=== PATIENT | female | born 1940 | race Caucasian/White ===

== ENCOUNTER 2021-08-11 01:34 | Day surgery (SDC) | payer MEDICARE, SELFPAY ==
[2021-07-23 14:56] VITALS: BMI 31.0
[2021-08-11 08:21] VITALS: BP 149/84; PULSE 96; RESP 18; TEMP 36.6; O2SAT 98; BMI 30.1
[2021-08-11] MEDS: LACTATED RINGERS 1,000 ML 150 ML IV CONT (08:31)
--- NOTE | 2021-08-11 08:53 | WPDGICN ---
Assessment and Plan Assessment and plan (1) Encounter for screening colonoscopy: Code(s): Z12.11 - Encounter for screening for malignant neoplasm of colon Status: Acute Assessment and Plan: Patient presents for neoplasia screening colonoscopy. Appears to be at average risk for colon polyps. GI Consult Note Consult date/time: 08/11/21 08:53 HPI: Madyson Mayo is a 81 year old female Referred for screening colonoscopy. Patient reports that her current weight appetite bowel movements are normal. She denies abdominal pain. She has had no bleeding. Family history noncontributory. She is referred by primary care service for screening colonoscopy per patient request. Review of Systems Review of Systems: All systems reviewed & are unremarkable except as noted in HPI and below PMFSH Family History Family History (Updated 03/22/17 @ 09:12 by DOCTOR UNKNOWN) Sibling Patient's brother is in good health, Onset Age: 63 Patient's brother is Mother Patient's mother is Hypertension Family history of coronary artery disease Family history of malignant neoplasm of breast in first degree relative Cerebrovascular accident Father Patient's father is Hypertension Family history of coronary artery disease Family history of congestive heart failure Other Family history of alcoholism Family history of arthritis Social History Social History Smoking status: Never smoker Second hand tobacco smoke exposure: No Alcohol intake: current Substance use type: does not use Living arrangements: with family Meds Home Medications and Allergies Home Medications Medication Instructions Recorded Confirmed Type allopurinol 300 mg PO DAILY 07/23/21 07/23/21 History Allergies Allergy/AdvReac Type Severity Reaction Status Date / Time No Known Allergies Allergy Unknown Verified 08/11/21 08:17 Vital Signs Vital Signs - 24 hr 08/11/21 08:21 Temperature 97.9 F Pulse Rate 96 Respiratory Rate 18 Blood Pressure 149/84 H Pulse Oximetry 98 Exam Narrative: Physical exam reveals patient to be alert. Vital signs stable. HEENT exam is unremarkable. Patient is anicteric. Lungs are clear to auscultation and percussion. Heart is without murmur or extra sounds. Abdominal exam bowel sounds are present soft nontender with no organomegaly. Digital external rectal exam is normal.
--- NOTE | 2021-08-11 09:12 | WPDANESEPPF ---
Anes - Initial Pre Proc Eval Procedure: Operation Date: 08/11/21 09:30 Proposed Procedures p Screening Colonoscopy - Rob Chamorro MD Date/Time: 08/11/21 09:12 Surgeon: Rob Chamorro MD Pre Op Diagnosis: neoplasm screening Patient Data Age: 81 Gender: F Height: 1.55 m Weight: 72.4 kg Last Vital Signs Temp 97.9 F 08/11/21 08:21 Pulse 96 08/11/21 08:21 Resp 18 08/11/21 08:21 BP 149/84 H 08/11/21 08:21 Pulse Ox 98 08/11/21 08:21 Allergies Allergy/AdvReac Type Severity Reaction Status Date / Time No Known Allergies Allergy Unknown Verified 08/11/21 08:17 Home Medications Medication Instructions Recorded Confirmed Type allopurinol 300 mg PO DAILY 07/23/21 07/23/21 History Patient hx anesthesia problems: none Family hx anesthesia problems: none Results Review: All pre-operative results and documents have been reviewed as part of the pre-operative evaluation. [facility], [facility] Family History Family History (Updated 03/22/17 @ 09:12 by DOCTOR UNKNOWN) Sibling Patient's brother is in good health, Onset Age: 63 Patient's brother is Mother Patient's mother is Hypertension Family history of coronary artery disease Family history of malignant neoplasm of breast in first degree relative Cerebrovascular accident Father Patient's father is Hypertension Family history of coronary artery disease Family history of congestive heart failure Other Family history of alcoholism Family history of arthritis Social History Social History Smoking status: Never smoker Second hand tobacco smoke exposure: No Alcohol intake: current Substance use type: does not use Living arrangements: with family Anes - Eval Final PreProcedure Day of Procedure 08/11/21 09:12 Patient weight: obese Heart: regular rate and rhythm Lungs: clear to auscultation Airway: Mallampati scale class II Neurological: alert and oriented Last oral intake: >/= 8 hours ASA classification: II Emergent: no Anesthetic plan: proceed Anesthesia type and monitoring: general GIVS and standard monitoring Results Review: All pre-operative results and documents have been reviewed as part of the pre-operative evaluation. Informed Consent: The patient's anesthetic plan and its attendant risks and benefits were discussed with the patient/family/POA. Questions were solicited and answers provided to the satisfaction of the patient/family/POA.
[2021-08-11 09:44] VITALS: BP 118/69; PULSE 77; RESP 17; O2SAT 96
[2021-08-11 09:54] VITALS: BP 121/71; PULSE 74; RESP 15; O2SAT 97
[2021-08-11 10:04] VITALS: BP 145/94; PULSE 83; RESP 23; O2SAT 100
== END 2021-08-11 10:04 | disposition home or self-care (01) ==
PROVIDERS: PCP Family Medicine; Visit Provider Internal Medicine Gastroenterology
PROC: 0DJD8ZZ Inspection of Lower Intestinal Tract, Via Natural or Artificial Opening Endoscopic (ICD-10-PCS; CPT 45378; principal; 2021-08-11 09:30)
DX: Z12.11 Encounter for screening for malignant neoplasm of colon (principal); K57.30 Diverticulosis of large intestine without perforation or abscess without bleeding; D12.3 Benign neoplasm of transverse colon; K64.8 Other hemorrhoids; K63.5 Polyp of colon; E66.9 Obesity, unspecified; Z68.30 Body mass index [BMI] 30.0-30.9, adult
CPT/HCPCS: 45380; 45385; 88305; J2704; J7120

== ENCOUNTER 2022-02-17 00:43 | Day surgery (SDC) | payer MEDICARE, SELFPAY ==
--- NOTE | 2022-01-05 14:42 | PC.NURSE ---
Report to the Outpatient Waiting Room, entrance under the green pavilion located off [facility], at time __1000 on date _01/12/22 . OR Time: __1200 . - You and your visitor will be asked a series of questions to screen for COVID 19 for your protection. - Only one visitor is allowed at this time. - The patient visitor is requested to leave or wait in car when not with patient. - A mask is required within the hospital. Patients may have clear liquids (water, carbonated beverages, clear teas, apple juice) until 3 hours prior to surgery with a maximum of 20 ounces. - No food from midnight until time of surgery - Infants may have breast milk until 4 hours before surgery, infant formula 6 hours prior to surgery. - Children will be allowed to drink immediately following surgery. If applicable, please bring a bottle or sippy cup to assist with drinking. Juice, water, soda, and popsicles are readily available. For infants on formula, please bring formula the day of surgery. Pacifiers are allowed. Take the following medications with a SIP of water the morning of surgery: ___NONE Medications to discontinue per physician __ALL VITAMINS AND SUPPLEMENTS_3 DAYS PRE OP__IBUPROFEN PER DR MENON Date to take last dose____01/08/22 Please no make-up, nail [facility], hairspray, perfume, deodorant, or body powder the day of surgery. No jewelry (including any body piercings) or valuables the day of surgery, leave them at home. Please take a shower or bath the night before, or the morning of, surgery with an antibacterial soap. Wear comfortable, loose fitting clothing. Children are encouraged to wear pajamas. - Jewelry must be removed prior to entering the operating room. Rings and piercings that are not removed may be cut off. - The hospital will not accept responsibility for valuables. - Please leave all valuables, including medications, at home the day of surgery. If you are going home after surgery, a licensed regional company truck driver must drive you home. - NO public transportation without another adult. - We recommend that an adult stay with you for 24 hours following discharge. - We also recommend that you do not drive, make important decision, drink alcoholic beverages, or take any drugs that were not prescribed by your health care provider for at least 24 hours after your discharge time. For Pediatric surgeries, we recommend two adults accompany the child home (only one inside the building at this time). Follow any additional instructions given to you from your surgeon. If you or anyone in your household have experienced Covid symptoms in the past week, please notify your surgeon or the nurse liaison at the phone number below for possible testing. Telephone instructions given to _PATIENT and asked if any additional questions and then verbalized understanding. Patient advised to call surgeon office or pre surgery nurse liaison [phone] if any additional questions.
[2022-01-05 14:49] VITALS: BMI 29.2
--- NOTE | 2022-02-10 09:44 | PC.NURSE ---
Report to the Outpatient Waiting Room, entrance under the green pavilion located off [facility], at time _0830 on date __02/17/22 . OR Time: __1030 . - You and your visitor will be asked a series of questions to screen for COVID 19 for your protection. - Only one visitor is allowed at this time. - The patient visitor is requested to leave or wait in car when not with patient. - A mask is required within the hospital. Patients may have clear liquids (water, carbonated beverages, clear teas, apple juice) until 3 hours prior to surgery with a maximum of 20 ounces. - No food from midnight until time of surgery - Infants may have breast milk until 4 hours before surgery, infant formula 6 hours prior to surgery. - Children will be allowed to drink immediately following surgery. If applicable, please bring a bottle or sippy cup to assist with drinking. Juice, water, soda, and popsicles are readily available. For infants on formula, please bring formula the day of surgery. Pacifiers are allowed. Take the following medications with a SIP of water the morning of surgery: __NONE Medications to discontinue per physician ____ALL VITAMINS AND SUPPLEMENTS 3 DAYS PRE OP Date to take last dose___02/13/22 Please no make-up, nail mohawk, hairspray, perfume, deodorant, or body powder the day of surgery. No jewelry (including any body piercings) or valuables the day of surgery, leave them at home. Please take a shower or bath the night before, or the morning of, surgery with an antibacterial soap. Wear comfortable, loose fitting clothing. Children are encouraged to wear pajamas. - Jewelry must be removed prior to entering the operating room. Rings and piercings that are not removed may be cut off. - The hospital will not accept responsibility for valuables. - Please leave all valuables, including medications, at home the day of surgery. If you are going home after surgery, a licensed national flatbed truck driver must drive you home. - NO public transportation without another adult. - We recommend that an adult stay with you for 24 hours following discharge. - We also recommend that you do not drive, make important decision, drink alcoholic beverages, or take any drugs that were not prescribed by your health care provider for at least 24 hours after your discharge time. For Pediatric surgeries, we recommend two adults accompany the child home (only one inside the building at this time). Follow any additional instructions given to you from your surgeon. If you or anyone in your household have experienced Covid symptoms in the past week, please notify your surgeon or the nurse liaison at the phone number below for possible testing. Telephone instructions given to ___PATIENT and asked if any additional questions and then verbalized understanding. Patient advised to call surgeon office or pre surgery nurse liaison [phone] if any additional questions.
[2022-02-10 09:56] VITALS: BMI 29.2
--- NOTE | 2022-02-10 09:58 | PC.NURSE ---
PT STATES NO CHANGE IN HEALTH HX SINCE LAST INTERVIEW
[2022-02-17] VITALS (10 sets, daily range): BP systolic 146–185; BP diastolic 76–91; PULSE 69–82; RESP 16–20; TEMP 36.1–36.8; O2SAT 94–98
--- NOTE | 2022-02-17 06:27 | WPDANESEPPF ---
Anes - Initial Pre Proc Eval Procedure: Operation Date: 02/17/22 07:30 Proposed Procedures p Right Rotator Cuff Repair - Frankie Hernandez MD Date/Time: 02/17/22 06:27 Surgeon: Frankie Hernandez MD Pre Op Diagnosis: Rt rot Cuff Tear Patient Data Age: 82 Gender: F Height: 1.55 m Weight: 70.35 kg Allergies Allergy/AdvReac Type Severity Reaction Status Date / Time No Known Allergies Allergy Unknown Verified 02/17/22 06:21 Home Medications Medication Instructions Recorded Confirmed Type allopurinol 300 mg tablet 300 mg PO DAILY 07/23/21 02/10/22 History antiarthritic combination no.2 900 900 mg PO DAILY 12/14/21 02/10/22 History mg tablet (glucosamine-chondroitin) biotin 5,000 mcg disintegrating 10,000 mcg PO DAILY 12/14/21 02/10/22 History tablet cholecalciferol (vitamin D3) 125 125 mcg PO DAILY 12/14/21 02/10/22 History mcg (5,000 unit) capsule lutein 25 mg-zeaxanthin 5 mg 1 cap PO DAILY 12/14/21 02/10/22 History capsule (Ocuvite Blue Light) acetaminophen 325 mg tablet 650 mg PO PRN PRN Pain 01/05/22 02/10/22 History (Tylenol) famotidine 20 mg tablet (Pepcid) 20 mg PO PRN PRN Heartburn 01/05/22 02/10/22 History ibuprofen 600 mg tablet 600 mg PO QID PRN Pain 01/05/22 02/10/22 History Patient hx anesthesia problems: none Family hx anesthesia problems: none Results Review: All pre-operative results and documents have been reviewed as part of the pre-operative evaluation. [facility] Past Medical History Medical History (Updated 02/17/22 @ 06:28 by Isaias Ibrahim MD) Arthritis GERD (gastroesophageal reflux disease) Gout Overweight Surgical History Surgical History (Updated 02/17/22 @ 06:28 by Isaias Ibrahim MD) History of shoulder surgery Family History Family History Sibling Patient's brother is in good health, Onset Age: 63 Patient's brother is Mother Patient's mother is Hypertension Family history of coronary artery disease Family history of malignant neoplasm of breast in first degree relative Cerebrovascular accident Father Patient's father is Hypertension Family history of coronary artery disease Family history of congestive heart failure Other Family history of alcoholism Family history of arthritis Social History Social History Smoking status: Never smoker Second hand tobacco smoke exposure: No Alcohol intake: current Substance use type: does not use Living arrangements: with family Spiritual care concerns: No Anes - Eval Final PreProcedure Day of Procedure 02/17/22 06:27 Patient weight: overweight Heart: regular rate and rhythm Lungs: clear to auscultation Airway: Mallampati scale class II Neurological: alert and oriented Last oral intake: >/= 8 hours ASA classification: II Emergent: no Anesthetic plan: proceed Anesthesia type and monitoring: general ETT and standard monitoring Results Review: All pre-operative results and documents have been reviewed as part of the pre-operative evaluation. Informed Consent: The patient's anesthetic plan and its attendant risks and benefits were discussed with the patient/family/POA. Questions were solicited and answers provided to the satisfaction of the patient/family/POA.
[2022-02-17] MEDS: CELECOXIB 200 MG CAPSULE PO (06:40)
[2022-02-17] MEDS: ACETAMINOPHEN 500 MG TABLET 1000 MG PO (06:40)
[2022-02-17] MEDS: LACTATED RINGERS 1,000 ML 30 ML IV CONT ×2 (06:45→09:53)
--- NOTE | 2022-02-17 07:10 | WPDHPUPDATE1 ---
History and Physical Update Update Date/Time: 02/17/22 07:10 History and Physical has been reviewed, including an updated exam of the patient. There are NO changes in the patient's condition. Risks, benefits, and alternatives have been discussed and questions answered. Patient agrees to proceed with procedure.
--- NOTE | 2022-02-17 07:21 | PM.IMHP ---
H&P: HPI History of Present Illness Date/Time: 02/17/22 07:21 Chief Complaint: RIGHT SHOULDER PAIN Narrative: Shoulder/Arm Injury/Condition Pt presents with Right shoulder pain that has been chronic, nontraumatic. She states her pain has become more frequent/severe over the past few months. Her ROM is limited d/t stiffness and pain. At this time, her pain is located at the superior aspect of the right shoulder and radiates into the deltoid. She alternates Tylenol and Ibuprofen which are managing her pain, well. She also utilizes heat, which also provides some relief. She underwent an MRI 11/30/21. She has not undergone any treatments since her MRI was completed. She is here for evaluation and plan of care. Pt had previous Left RCR in 2017. Dominant hand: right Current symptoms: Reports catching, stiffness, weakness and radiation Location: superior Character: intermittent and stabbing Onset: 1-3 months Exacerbated by: motion, lifting, throwing sports, rotational activities, prolonged activity, activities of daily living, sleeping, reaching/overhead motion and lying on affected side Previous treatments: Anti-inflammatory meds: right, Elevation: right and Heat: right Improved by treatment/surgery: too soon to tell Review of Systems Constitutional: Constitutional: Reports no additional constitutional complaints Eyes: Eyes: Reports no additional eye complaints ENT: Reports system reviewed and no additional complaints, except as documented Cardiovascular: Cardiovascular: Reports no additional cardiovascular complaints Respiratory: Respiratory: Reports no additional respiratory complaints Gastrointestinal: Gastrointestinal: Reports no additional gastrointestinal complaints Genitourinary: Genitourinary: Reports no additional female genitourinary complaints Musculoskeletal: Musculoskeletal: Reports no additional musculoskeletal complaints Neurologic: Reports system reviewed and no additional complaints, except as documented Psychiatric: Psychiatric: Reports no additional psychiatric complaints Endocrine: Endocrine: Reports no additional endocrine complaints Hematologic/Lymphatic: Hematologic/Lymphatic: Reports no additional hematologic/lymphatic complaints Allergic/Immunologic: Allergic/Immunologic: Reports no additional allergic/immunologic complaints PMFSH Past Medical History Medical History Arthritis GERD (gastroesophageal reflux disease) Gout Overweight Surgical History Surgical History History of shoulder surgery Family History Family History Sibling Patient's brother is in good health, Onset Age: 63 Patient's brother is Mother Patient's mother is Hypertension Family history of coronary artery disease Family history of malignant neoplasm of breast in first degree relative Cerebrovascular accident Father Patient's father is Hypertension Family history of coronary artery disease Family history of congestive heart failure Other Family history of alcoholism Family history of arthritis Social History Social History Smoking status: Never smoker Second hand tobacco smoke exposure: No Alcohol intake: current Substance use type: does not use Living arrangements: with family Spiritual care concerns: No Meds Home Medications and Allergies Home Medications Medication Instructions Recorded Confirmed Type allopurinol 300 mg tablet 300 mg PO DAILY 07/23/21 02/17/22 History antiarthritic combination no.2 900 900 mg PO DAILY 12/14/21 02/17/22 History mg tablet (glucosamine-chondroitin) biotin 5,000 mcg disintegrating 10,000 mcg PO DAILY 12/14/21 02/17/22 History tablet cholecalciferol (vitamin D3) 125 125 mcg PO DAILY 12/14
--- NOTE | 2022-02-17 07:23 | WPDANESPNB ---
Anes - Peripheral Nerve Block Date/Time: 02/17/22 07:23 I have discussed with the patient/family/POA the placement of a peripheral nerve block for post-operative pain management, including associated risks, benefits, complications, and side effects. Alternative methods of post-operative analgesia were detailed. Questions were solicited and answers provided to the satisfaction of the patient/family/POA. Time-Out: A pre-procedural Time-Out was completed immediately before starting the procedure and confirmed: Patient Identification, Site, Procedure, Patient Position and the Availability of Requisite Equipment. Clinical Indications: Acute post-operative pain management requested by the operative surgeon. Nerve Block Insertion Note Anes-nerve block: interscalene right Patient position: supine Skin prep: chlorhexidine Needle: 22 gauge, stimulating, insulated echogenic needle. Needle length: 50 mm Technique: ultrasound Injectate: bupivacaine 0.5% with epi 5 mcg/ml (30cc no epi) and dexamethasone (mg) (8) Procedure start time:: 714 Procedure end time:: 723
--- NOTE | 2022-02-17 07:27 | WPDHPUPDATE1 ---
History and Physical Update Update Date/Time: 02/17/22 07:27 History and Physical has been reviewed, including an updated exam of the patient. There are NO changes in the patient's condition. Risks, benefits, and alternatives have been discussed and questions answered. Patient agrees to proceed with procedure.
[2022-02-17] MEDS: ceFAZolin 2 GM/D5W 50 ML 2 GM/50 ML BAG IVPB (07:30)
--- NOTE | 2022-02-17 09:59 | W.PM.PROC2 ---
Procedure Note - Detailed Date of Procedure 02/17/22 Pre-op Diagnosis Rt rot Cuff Tear Post-op Diagnosis Same Procedure Performed REPAIR RIGHT ROTATOR CUFF Surgeon Frankie Hernandez MD Anesthesia General Description of Procedure THE PATIENT WAS TAKEN TO THE OPERATING ROOM AND THEN INTUBATED AND PLACED IN THE BEACH CHAIR POSITION. THE RIGHT UPPER EXTREMITY WAS PREPPED AND DRAPED IN THE NORMAL STERILE FASHION. AN INCISION WAS MADE IN BETWEEN THE LUZMA-LATERAL ACROMION AND THE AC JOINT. THE FASCIA WAS IDENTIFIED. NEXT A MINI OPEN INCISION WAS MADE THROUGH THE DELTOID MUSCLE EXPOSING THE SUBACROMIAL SPACE. A LIMITED ACROMIOPLASTY WAS PREFORMED. THE ROTATOR CUFF WAS IDENTIFIED. THERE WAS A FULL THICKNESS TEAR. THERE WAS A TEAR THROUGH THE ROTATOR CUFF INTERVAL BETWEEN THE SUPRASPINATUS AND INFRASPINATUS TENDONS. THE SUPRASPINATUS INSERTION WAS INTACT. THE INFRASPINATUS INSERTION WAS COMPLETELY DETACHED. A REPAIR OF THE ROTATOR CUFF INTERVAL WAS PREFORMED WITH #2 NONABSORBABLE SUTURE. NEXT THE DETACHMENT OF THE INFRASPINATUS TENDON WAS DEBRIDED TO GOOD TISSUE IT MEASURED APPROXIMATELY 2 CM X 2 CM. THE GREATER TUBEROSITY WAS DEBRIDED TO BLEEDING BONE. 2 ARTHREX 5.5 SUTURE ANCHORS WERE PLACED IN TO GOOD BONE AND HAD VERY GOOD BITES. KESHAV-ROMY TYPE REPAIRS WERE DONE TO THE ROTATOR CUFF AND THERE WAS GOOD APPROXIMATION TO THE GREATER TUBEROSITY. THE REPAIR WAS EXCELLENT. THERE WAS NO IMPINGEMENT ON THE REPAIR FROM THE ACROMION WITH RANGE OF MOTION. THE WOUND WAS IRRIGATED WITH COPIOUS AMOUNTS OF ANTIBIOTIC SOLUTION. A MIXTURE OF H20H AND STERILE WATER AND STERILE BETADINE WAS USED TO IRRIGATE THE WOUND. THE DELTOID MUSCLE WAS REPAIRED WITH #2 FIBER WIRE AND 0 VICRYL SUTURE. THE SUBCUTANEOUS LAYER WAS APPROXIMATED WITH 2-0 VICRYL. THE SKIN WAS APPROXIMATED WITH 3-0 QUIL AND DERMABOND. STERILE DRESSING WAS APPLIED. PATIENT WAS EXTUBATED. Estimated Blood Loss 20 Complications No immediate complications Condition Stable Disposition PACU
== END 2022-02-17 12:12 | disposition home or self-care (01) ==
PROVIDERS: PCP Family Medicine; Visit Provider Orthopaedic Surgery
PROC: (CPT 23420; principal; 2022-02-17 07:30)
DX: M75.121 Complete rotator cuff tear or rupture of right shoulder, not specified as traumatic (principal); K21.9 Gastro-esophageal reflux disease without esophagitis; M10.9 Gout, unspecified; E66.3 Overweight; Z68.29 Body mass index [BMI] 29.0-29.9, adult
CPT/HCPCS: 23420; A9270; C1713; J0330; J0690; J1100; J2250; J2370; J2405; J2704; J3010; J7120